=== PATIENT | male | born 1995 | race Caucasian/White ===

== ENCOUNTER → 2019-07-03 10:12 | Day surgery (SDC) | payer BC ==
[~2019-07-03 10:12] MED LIST: Acetaminophen IV 1GM/100ML * 100 ML ONE; Buffered Lidocaine 1% SYRIN* 1 ML/SYRINGE INTRADERM ONE; Dexamethasone IV* 4 MG/ML 1 ML (4 MG) ONE; HYDROmorphone INJ1* 1 MG/ML SYRINGE IV PRN; Ketorolac INJ* 30 MG/ML 1 ML VIAL ONE; Lactated Ringers 1000 ML Bag* 1,000 ML IV SCH; Lidocaine 2% PF * 5 ML VIAL ONE; Midazolam* 1 MG/ML 2 ML VIAL (2 MG) ONE; Naloxone* 0.4 MG/ML 1 ML VIAL IV PRN; Ondansetron INJ* 2 MG/ML VIAL ONE; Propofol* 10 MG/ML 20 ML BTL ONE; fentaNYL* 50 MCG/ML 2 ML VIAL (100 MCG VIAL) ONE
[2019-07-03 14:35] VITALS: BP 123/68
--- NOTE | 2019-07-03 16:42 | OP ---
OPERATIVE REPORT: DATE OF OPERATION: 07/03/19 DATE OF : 89 SURGEON: Yaniv Ulloa MD PRINCIPAL SECURITY ARCHITECT: None. ANESTHESIA: General. PRE-OP DIAGNOSIS: Chronic tonsillitis. POST-OP DIAGNOSIS: Chronic tonsillitis. OPERATIVE PROCEDURE: Tonsillectomy. ESTIMATED BLOOD LOSS: Less than 10 cc. SPECIMENS: Right and left tonsils to Pathology. DESCRIPTION OF PROCEDURE: This is a 23-year-old male who has had significant problems with chronic t onsillitis. He presents for elective tonsillectomy. The patient was brought to the operating room, general anesthesia was induced, and an oral endotracheal tube was placed. The patient was draped, th e table was turned, and a time-out was performed. A McIvor mouth gag was used to facilitate exposure of the oropharynx. The right tonsil was addressed first. It was grasped with straight Allis forcep s, retracting medially and dissected free of its fossa with a coblation device at a setting of 7 and 3. There was minimal bleeding. Once the tonsil was removed, the left tonsil was addressed in a slava lar fashion. Again, coblation device was used to dissect the tonsil free of its fossa with minimal b leeding. Once the tonsils were removed, the coag settings on the device were turned up to 5, the sup erior and inferior pole regions were then prophylactically cauterized. The patient was then returned to the care of the anesthesiologist for extubation. [id number]/[facility] #: [id number]
== END | disposition home or self-care (01) ==
LOC: OR 10:12
PROVIDERS: ATTEND Otolaryngology
DX: J35.01 Chronic tonsillitis (principal); F98.8 Other specified behavioral and emotional disorders with onset usually occurring in childhood and adolescence; F41.9 Anxiety disorder, unspecified
CPT/HCPCS: 88304; J1100; J1885; J2250; J2405; J2704; J3010